=== PATIENT | female | born 1940 | race Caucasian/White ===

== ENCOUNTER 2018-03-23 15:39 | Inpatient (IN) | payer OTHER ==
[~2018-03-23] VITALS: Ht 162.6 cm; Wt 84.0 kg
[~2018-03-23 15:39] MED LIST: ASPI-621 PO; LEVO137T2 PO; LISI40TA PO; METF850T10 PO; METO25TA35 PO; NITR100C PO; SERT25TA PO
[2018-03-23] MEDS ORDERED: SODIUM CHLORIDE 0.9% 1,000ML IVBOLUS ONE ×2 (16:30→19:00)
[2018-03-23] MEDS ORDERED: SODIUM CHLORIDE FLUSH 10ML SYR IVF ONE (16:30)
[2018-03-23 16:31] LABS: MEAN CORPUSCULAR HEMOGLOBIN 30.6 pg (27.0-34.8); MEAN CORPUSCULAR VOLUME 89.8 fL (80-100); MEAN PLATELET VOLUME 8.6 fL (7.4-10.4); PLATELET COUNT 133 x10^3/uL (130-400); RED BLOOD COUNT 3.49 x10^6/uL (3.82-5.3)
[2018-03-23 16:40] LABS: INTERNATIONAL NORMALIZED RATIO 1.12 (0.93-1.1); PROTHROMBIN TIME 11.5 Seconds (9.6-11.5)
[2018-03-23 16:41] LABS: ALANINE AMINOTRANSFERASE 15 U/L (12-78); ANION GAP 13 mmol/L (5-15); CHLORIDE 103 mmol/L (98-107); CREATININE 1.73 mg/dL (0.55-1.02)
[2018-03-23 16:46] LABS: ALKALINE PHOSPHATASE 56 U/L (45-117); BILIRUBIN,TOTAL 1.4 mg/dL (0.2-1.0); FREE T4 (FREE THYROXINE) 1.23 ng/dL (0.76-1.46); TOTAL PROTEIN 7.5 g/dL (6.4-8.2)
[2018-03-23 16:52] LABS: MD YES
[2018-03-23 17:01] LABS: BAND#(MANUAL) 9.55 x10^3/uL; BANDS%(MANUAL) 25 % (0-7); LYMPH#(MANUAL) 0.38 x10^3/uL (1-3.4); LYMPHS% (MANUAL) 1 % (22-44); METAMYELOCYTES# (MANUAL) 0.76 x10^3/uL (0-0); METAMYELOCYTES% (MANUAL) 2 % (0-1); MONOS#(MANUAL) 1.91 x10^3/uL (0.3-2.7); MONOS% (MANUAL) 5 % (2-9); SEGS% (MANUAL) 67 % (42-75)
[2018-03-23 17:02] LABS: <RBC MORPHOLOGY> NORMAL
[2018-03-23 17:03] LABS: <PLATELET ESTIMATE> ADEQUATE; <PLT MORPHOLOGY> NORMAL PLT MORPH; PMNS WITH VACUOLES 1+
[2018-03-23 17:25] LABS: MICROSCOPIC AUTO
[2018-03-23 17:26] LABS: CULTURE INDICATED? YES
[2018-03-23] MEDS ORDERED: CEFTRIAXONE PMX 1GM/50ML 50 ML IVPB ONE ×2 (17:30→18:00)
[2018-03-23] MEDS ORDERED: CEFTRIAXONE PMX 1GM/50ML 50 ML ONE (17:57)
[2018-03-23] MEDS ORDERED: VANCOMYCIN PER PHARMACY MC PRN (18:00)
[2018-03-23] MEDS ORDERED: SODIUM CHLORIDE FLUSH 10ML SYR IVF PRN (19:00)
[2018-03-23] MEDS ORDERED: VANCOMYCIN 1,300 MG in SODIUM CHLORIDE 0.9% 250 ML IV ONE (19:00)
[2018-03-23] MEDS ORDERED: LACTATED RINGERS 1,000 ML IV SCH (19:30)
[2018-03-23] MEDS ORDERED: ONDANSETRON 2MG/ML, 2ML IVPush PRN (19:30)
[2018-03-23] MEDS ORDERED: HEPARIN 5,000 UNITS/ML, 1ML SQ SCH (19:30)
[2018-03-23] MEDS ORDERED: HEPARIN 5,000 UNITS/ML, 1ML ONE (19:51)
[2018-03-23] MEDS ORDERED: LEVOFLOXACIN/PMX 750MG/150ML 150 ML IV SCH (20:00)
[2018-03-23] MEDS ORDERED: LEVOFLOXACIN/PMX 750MG/150ML 150 ML ONE (20:31)
[2018-03-24] MEDS ORDERED: HEPARIN 5,000 UNITS/ML, 1ML IV PRN (00:30)
[2018-03-24] MEDS ORDERED: HEPARIN 5,000 UNITS/ML, 1ML IV ONE (00:30)
[2018-03-24] MEDS: HEPARIN 25,000 UNITS/500ML PMX 500 ML IV PRN ×2 (00:36→07:24)
[2018-03-24 00:54] VITALS: BP 122/54
[2018-03-24] MEDS ORDERED: FUROSEMIDE 20 MG/2 ML IV ONE (01:30)
[2018-03-24] MEDS: ACETAMINOPHEN 325 MG TABLET PO PRN ×2 (02:35→09:35)
[2018-03-24 04:03] VITALS: BP 125/52
[2018-03-24] MEDS ORDERED: CEFTRIAXONE 2 GM in SODIUM CHLORIDE 0.9% 50 ML IV SCH (06:00)
[2018-03-24] MEDS: LEVOTHYROXINE 137 MCG TABLET PO SCH (06:31)
[2018-03-24 07:00] LABS: MEAN CORPUSCULAR HEMOGLOBIN 30.2 pg (27.0-34.8); MEAN CORPUSCULAR HGB CONC 33.7 g/dL (32.4-35.8); MEAN CORPUSCULAR VOLUME 89.7 fL (80-100); MEAN PLATELET VOLUME 9.3 fL (7.4-10.4); PLATELET COUNT 123 x10^3/uL (130-400); RED BLOOD COUNT 3.41 x10^6/uL (3.82-5.3); RED CELL DISTRIBUTION WIDTH 15.5 % (9.6-15.2)
[2018-03-24 07:10] LABS: ALBUMIN 2.7 g/dL (3.4-5.0); ANION GAP 11 mmol/L (5-15); CALCIUM 8.1 mg/dL (8.5-10.1); CHLORIDE 104 mmol/L (98-107)
[2018-03-24 07:12] LABS: ALANINE AMINOTRANSFERASE 19 U/L (12-78); ALKALINE PHOSPHATASE 69 U/L (45-117); BILIRUBIN,TOTAL 0.9 mg/dL (0.2-1.0); CHOL/HDL RATIO 8.3; CHOLESTEROL, TOTAL 83 mg/dL (140-239); CREATININE 1.24 mg/dL (0.55-1.02); HDL CHOLESTEROL (DIRECT) 10 mg/dL (40-60); TOTAL PROTEIN 6.9 g/dL (6.4-8.2); TRIGLYCERIDES 207 mg/dL (50-200); VLDL CHOLESTEROL 41 mg/dL (0-25)
[2018-03-24 07:13] LABS: HDL CHOL % 12 % (28-40); LDL CHOLESTEROL,CALCULATED 32 mg/dL (54-169); LDL/HDL RATIO 3.2 (0.5-3.0)
[2018-03-24 07:20] LABS: MD YES
[2018-03-24 07:35] LABS: BANDS%(MANUAL) 21 % (0-7); LYMPH#(MANUAL) 0.26 x10^3/uL (1-3.4); LYMPHS% (MANUAL) 1 % (22-44); MONOS#(MANUAL) 0.51 x10^3/uL (0.3-2.7); MONOS% (MANUAL) 2 % (2-9); SEG#(MANUAL) 19.53 x10^3/uL (1.8-6.8); SEGS% (MANUAL) 76 % (42-75)
[2018-03-24 07:36] LABS: <RBC MORPHOLOGY> NORMAL; PMNS WITH VACUOLES 1+
[2018-03-24 07:37] LABS: <PLATELET ESTIMATE> ADEQUATE; <PLT MORPHOLOGY> NORMAL PLT MORPH
[2018-03-24] MEDS: ERTAPENEM 1 GM in SODIUM CHLORIDE 0.9% 50 ML IV SCH (07:49)
[2018-03-24] MEDS ORDERED: POTASSIUM CHLORIDE 20 MEQ TAB.ER.PRT PO ONE (08:00)
[2018-03-24] MEDS ORDERED: MAGNESIUM SULFATE PMX 4GM/100M 100 ML IV ONE (08:00)
[2018-03-24] MEDS ORDERED: MAGNESIUM SULFATE 4 GM in SODIUM CHLORIDE 0.9% 100 ML IV ONE (08:00)
[2018-03-24] MEDS: ASPIRIN 81 MG TABLET EC PO SCH (09:37)
[2018-03-24] MEDS: ENOXAPARIN 80 MG/0.8 ML SQ SCH (13:05)
[2018-03-24] MEDS: IBUPROFEN 200 MG TABLET PO PRN (13:15)
[2018-03-24 17:07] VITALS: BP 99/60
[2018-03-24 19:23] VITALS: BP 114/64
[2018-03-24] MEDS ORDERED: LACTATED RINGERS 1,000 ML IV SCH (19:30)
[2018-03-24] MEDS ORDERED: NITROGLYCERIN 0.4 MG/SPRAY SL PRN (20:00)
[2018-03-24 20:01] VITALS: BP 114/62
[2018-03-24] MEDS: ATORVASTATIN 40 MG TABLET PO SCH (20:36)
[2018-03-25 02:34] VITALS: BP 99/60
[2018-03-25] MEDS: ENOXAPARIN 80 MG/0.8 ML SQ SCH ×2 (02:35→13:45)
[2018-03-25 05:15] LABS: ANION GAP 4 mmol/L (5-15); CALCIUM 8.4 mg/dL (8.5-10.1); CHLORIDE 105 mmol/L (98-107); CREATININE 0.82 mg/dL (0.55-1.02)
[2018-03-25 05:16] LABS: MEAN CORPUSCULAR HEMOGLOBIN 30.7 pg (27.0-34.8); MEAN CORPUSCULAR HGB CONC 34.1 g/dL (32.4-35.8); RED BLOOD COUNT 3.16 x10^6/uL (3.82-5.3); RED CELL DISTRIBUTION WIDTH 15.7 % (9.6-15.2)
[2018-03-25 06:00] LABS: BASOPHILS % (AUTO) 0 % (0-1); EOSINOPHILS # (AUTO) 0.01 x10^3/uL (0-0.4); EOSINOPHILS % (AUTO) 0 % (1-7); LYMPHOCYTES # (AUTO) 0.94 x10^3/uL (1-3.4); LYMPHOCYTES % (AUTO) 5 % (22-44); MD SCAN; MEAN PLATELET VOLUME 9.8 fL (7.4-10.4); MONOCYTES # (AUTO) 1.32 x10^3/uL (0.2-0.8); MONOCYTES % (AUTO) 8 % (2-9); NEUTROPHILS # (AUTO) 15.04 x10^3/uL (1.8-6.8); NEUTROPHILS % (AUTO) 87 % (42-75); PLATELET COUNT 104 x10^3/uL (130-400)
[2018-03-25] MEDS: ASPIRIN 81 MG TABLET EC PO SCH (06:17)
[2018-03-25] MEDS: LEVOTHYROXINE 137 MCG TABLET PO SCH (06:17)
[2018-03-25 07:25] VITALS: BP 103/64
[2018-03-25] MEDS: ERTAPENEM 1 GM in SODIUM CHLORIDE 0.9% 50 ML IV SCH (08:28)
[2018-03-25 10:11] VITALS: BP 139/83
[2018-03-25] MEDS ORDERED: LORazepam 2 MG/ML, 1ML IVPush ONE (10:24)
[2018-03-25] MEDS ORDERED: LORazepam 2 MG/ML, 1ML ONE (10:25)
[2018-03-25] MEDS ORDERED: FUROSEMIDE 20 MG/2 ML ONE (10:56)
[2018-03-25] MEDS ORDERED: FUROSEMIDE 20 MG/2 ML IV ONE (12:00)
[2018-03-25] MEDS: ACETAMINOPHEN 650 MG SUPP PR PRN (12:04)
[2018-03-25] MEDS ORDERED: NOREPINEPHRINE 4 MG in SODIUM CHLORIDE 0.9% 246 ML IV PRN (15:30)
[2018-03-25] MEDS: ATORVASTATIN 40 MG TABLET PO SCH (20:36)
[2018-03-26] MEDS: ENOXAPARIN 80 MG/0.8 ML SQ SCH ×2 (02:04→14:08)
[2018-03-26] MEDS: LEVOTHYROXINE 137 MCG TABLET PO SCH (05:23)
[2018-03-26] MEDS: ASPIRIN 81 MG TABLET EC PO SCH (05:23)
[2018-03-26] MEDS: ERTAPENEM 1 GM in SODIUM CHLORIDE 0.9% 50 ML IV SCH (07:42)
[2018-03-26 07:56] LABS: MEAN CORPUSCULAR HEMOGLOBIN 29.5 pg (27.0-34.8); MEAN CORPUSCULAR HGB CONC 33.5 g/dL (32.4-35.8); MEAN CORPUSCULAR VOLUME 88.1 fL (80-100); MEAN PLATELET VOLUME 9.4 fL (7.4-10.4); PLATELET COUNT 124 x10^3/uL (130-400); RED BLOOD COUNT 3.35 x10^6/uL (3.82-5.3); RED CELL DISTRIBUTION WIDTH 16.5 % (9.6-15.2)
[2018-03-26 08:03] LABS: ANION GAP 7 mmol/L (5-15); CALCIUM 8.9 mg/dL (8.5-10.1); CHLORIDE 105 mmol/L (98-107); CREATININE 0.81 mg/dL (0.55-1.02)
[2018-03-26 08:21] LABS: MD YES
[2018-03-26 08:22] LABS: <RBC MORPHOLOGY> NORMAL; BAND#(MANUAL) 0.88 x10^3/uL; BANDS%(MANUAL) 6 % (0-7); LYMPH#(MANUAL) 0.29 x10^3/uL (1-3.4); LYMPHS% (MANUAL) 2 % (22-44); MONOS#(MANUAL) 0.44 x10^3/uL (0.3-2.7); MONOS% (MANUAL) 3 % (2-9); SEG#(MANUAL) 13.08 x10^3/uL (1.8-6.8); SEGS% (MANUAL) 89 % (42-75)
[2018-03-26 08:23] LABS: <PLATELET ESTIMATE> ADEQUATE; <PLT MORPHOLOGY> NORMAL PLT MORPH
[2018-03-26] MEDS ORDERED: FUROSEMIDE 20 MG/2 ML IV ONE (08:30)
[2018-03-26] MEDS: IBUPROFEN 200 MG TABLET PO PRN (10:08)
[2018-03-26] MEDS: AMIODARONE 900 MG in DEXTROSE 5% 482 ML IV PRN (14:22)
[2018-03-26] MEDS ORDERED: AMIODARONE 150 MG in DEXTROSE 5% 100 ML IV ONE (14:30)
[2018-03-26] MEDS ORDERED: FILTER 0.22 MICRON FOR AMIODARONE IV PRN (14:30)
[2018-03-26] MEDS: PHENYLEPHRINE 10 MG in SODIUM CHLORIDE 0.9% 249 ML IV PRN (18:48)
[2018-03-26] MEDS: ATORVASTATIN 40 MG TABLET PO SCH (21:02)
[2018-03-27] MEDS: ENOXAPARIN 80 MG/0.8 ML SQ SCH ×2 (02:08→14:08)
[2018-03-27] MEDS: PHENYLEPHRINE 10 MG in SODIUM CHLORIDE 0.9% 249 ML IV PRN (02:19)
[2018-03-27 04:34] LABS: ANION GAP 9 mmol/L (5-15); CALCIUM 8.9 mg/dL (8.5-10.1); CHLORIDE 106 mmol/L (98-107); CREATININE 0.83 mg/dL (0.55-1.02)
[2018-03-27] MEDS: ASPIRIN 81 MG TABLET EC PO SCH (06:11)
[2018-03-27] MEDS: LEVOTHYROXINE 137 MCG TABLET PO SCH (06:11)
[2018-03-27] MEDS: ERTAPENEM 1 GM in SODIUM CHLORIDE 0.9% 50 ML IV SCH (09:02)
[2018-03-27] MEDS ORDERED: POTASSIUM CHLORIDE 30 MEQ in SODIUM CHLORIDE 0.9% 100 ML IV ONE (10:00)
[2018-03-27] MEDS: AMIODARONE 900 MG in DEXTROSE 5% 482 ML IV PRN (13:08)
[2018-03-27] MEDS ORDERED: MAGNESIUM SULFATE PMX 2GM/50ML 50 ML IV ONE (17:00)
[2018-03-27] MEDS: ATORVASTATIN 40 MG TABLET PO SCH (21:21)
[2018-03-27] MEDS: ACETAMINOPHEN 650 MG SUPP PR PRN (21:42)
[2018-03-28] MEDS: ENOXAPARIN 80 MG/0.8 ML SQ SCH ×2 (02:38→14:02)
[2018-03-28 04:51] LABS: MEAN CORPUSCULAR HEMOGLOBIN 30.4 pg (27.0-34.8); MEAN CORPUSCULAR HGB CONC 34.4 g/dL (32.4-35.8); MEAN CORPUSCULAR VOLUME 88.2 fL (80-100); PLATELET COUNT 106 x10^3/uL (130-400); RED BLOOD COUNT 3.09 x10^6/uL (3.82-5.3); RED CELL DISTRIBUTION WIDTH 16.1 % (9.6-15.2)
[2018-03-28 04:59] LABS: ALANINE AMINOTRANSFERASE 24 U/L (12-78); ALBUMIN 2.2 g/dL (3.4-5.0); ANION GAP 7 mmol/L (5-15); CALCIUM 8.7 mg/dL (8.5-10.1); CHLORIDE 109 mmol/L (98-107)
[2018-03-28 05:02] LABS: ALKALINE PHOSPHATASE 70 U/L (45-117); BILIRUBIN,TOTAL 1.2 mg/dL (0.2-1.0); CREATININE 0.81 mg/dL (0.55-1.02); TOTAL PROTEIN 6.5 g/dL (6.4-8.2)
[2018-03-28 05:06] LABS: MD YES
[2018-03-28 05:07] LABS: BAND#(MANUAL) 0.55 x10^3/uL; BANDS%(MANUAL) 3 % (0-7); LYMPHS% (MANUAL) 6 % (22-44); MONOS#(MANUAL) 1.28 x10^3/uL (0.3-2.7); MONOS% (MANUAL) 7 % (2-9); SEG#(MANUAL) 15.37 x10^3/uL (1.8-6.8); SEGS% (MANUAL) 84 % (42-75)
[2018-03-28 05:08] LABS: <PLATELET ESTIMATE> ADEQUATE; <PLT MORPHOLOGY> NORMAL PLT MORPH; <RBC MORPHOLOGY> NORMAL
[2018-03-28] MEDS: LEVOTHYROXINE 137 MCG TABLET PO SCH (06:27)
[2018-03-28] MEDS: ASPIRIN 81 MG TABLET EC PO SCH (06:27)
[2018-03-28] MEDS ORDERED: POTASSIUM CHLORIDE 20 MEQ in SODIUM CHLORIDE 0.9% 250 ML IV ONE (09:00)
[2018-03-28] MEDS: ERTAPENEM 1 GM in SODIUM CHLORIDE 0.9% 50 ML IV SCH (11:12)
[2018-03-28] MEDS ORDERED: POTASSIUM CHLORIDE 20 MEQ TAB.ER.PRT PO ONE ×2 (12:30→17:30)
[2018-03-28] MEDS: AMIODARONE 200 MG TABLET PO SCH ×3 (13:56→21:38)
[2018-03-28] MEDS: LIDODERM 5% PATCH TD SCH (15:20)
[2018-03-28] MEDS ORDERED: BACLOFEN 10 MG TABLET PO PRN (15:30)
[2018-03-28] MEDS ORDERED: POTASSIUM CHLORIDE 20 MEQ PACKET PO PRN (17:30)
[2018-03-28 20:35] VITALS: BP 129/76
[2018-03-28] MEDS: ATORVASTATIN 40 MG TABLET PO SCH (21:38)
[2018-03-28] MEDS ORDERED: BISACODYL 10 MG SUPP PR PRN (22:00)
[2018-03-29 00:42] VITALS: BP 125/76
[2018-03-29] MEDS: ENOXAPARIN 80 MG/0.8 ML SQ SCH ×2 (02:21→14:27)
[2018-03-29 03:31] LABS: MEAN CORPUSCULAR HEMOGLOBIN 30.5 pg (27.0-34.8); MEAN CORPUSCULAR HGB CONC 34.4 g/dL (32.4-35.8); MEAN CORPUSCULAR VOLUME 88.7 fL (80-100); PLATELET COUNT 117 x10^3/uL (130-400); RED CELL DISTRIBUTION WIDTH 16.3 % (9.6-15.2)
[2018-03-29 03:33] LABS: ALBUMIN 2.5 g/dL (3.4-5.0); ANION GAP 7 mmol/L (5-15); CALCIUM 9.3 mg/dL (8.5-10.1); CHLORIDE 108 mmol/L (98-107)
[2018-03-29 03:39] LABS: ALANINE AMINOTRANSFERASE 34 U/L (12-78); ALKALINE PHOSPHATASE 75 U/L (45-117); BILIRUBIN,TOTAL 1.2 mg/dL (0.2-1.0); CREATININE 0.85 mg/dL (0.55-1.02); TOTAL PROTEIN 7.2 g/dL (6.4-8.2)
[2018-03-29 04:49] LABS: BASOPHILS # (AUTO) 0.02 x10^3/uL (0-0.1); BASOPHILS % (AUTO) 0 % (0-1); EOSINOPHILS # (AUTO) 0.03 x10^3/uL (0-0.4); EOSINOPHILS % (AUTO) 0 % (1-7); LYMPHOCYTES # (AUTO) 1.56 x10^3/uL (1-3.4); LYMPHOCYTES % (AUTO) 7 % (22-44); MD SCAN; MONOCYTES # (AUTO) 0.64 x10^3/uL (0.2-0.8); MONOCYTES % (AUTO) 3 % (2-9); NEUTROPHILS # (AUTO) 20.85 x10^3/uL (1.8-6.8); NEUTROPHILS % (AUTO) 90 % (42-75)
[2018-03-29] MEDS ORDERED: LEVOTHYROXINE 137 MCG TABLET ONE (05:31)
[2018-03-29] MEDS: LEVOTHYROXINE 137 MCG TABLET PO SCH (05:35)
[2018-03-29] MEDS: AMIODARONE 200 MG TABLET PO SCH (05:35)
[2018-03-29] MEDS: ASPIRIN 81 MG TABLET EC PO SCH (05:35)
[2018-03-29 07:18] VITALS: BP 126/73
[2018-03-29] MEDS: ERTAPENEM 1 GM in SODIUM CHLORIDE 0.9% 50 ML IV SCH (07:51)
[2018-03-29] MEDS: TAMSULOSIN 0.4 MG CAP.ER.24H PO SCH (07:51)
[2018-03-29] MEDS: IBUPROFEN 200 MG TABLET PO PRN ×2 (09:27→13:25)
[2018-03-29] MEDS ORDERED: LORazepam 2 MG/ML, 1ML IVPush PRN (13:00)
[2018-03-29 13:02] VITALS: BP 108/67
[2018-03-29] MEDS: SENNA/DOCUSATE TABLET PO PRN (14:27)
[2018-03-29] MEDS: LIDODERM 5% PATCH TD SCH (14:28)
[2018-03-29] MEDS: ATORVASTATIN 40 MG TABLET PO SCH (20:48)
[2018-03-29 20:50] VITALS: BP 153/86
[2018-03-29 22:22] LABS: HCT (SEDRATE) 27.4 % (34.6-47.8)
[2018-03-29 22:39] LABS: HIGH-SENSITIVITY CRP 9.8 mg/dL (0.02-0.30)
[2018-03-30] MEDS: ENOXAPARIN 80 MG/0.8 ML SQ SCH ×2 (02:19→13:17)
[2018-03-30 03:00] VITALS: BP 142/85
[2018-03-30] MEDS: ASPIRIN 81 MG TABLET EC PO SCH (05:48)
[2018-03-30] MEDS: LEVOTHYROXINE 137 MCG TABLET PO SCH (05:49)
[2018-03-30 06:11] LABS: MEAN CORPUSCULAR HEMOGLOBIN 30.3 pg (27.0-34.8); MEAN CORPUSCULAR HGB CONC 34.4 g/dL (32.4-35.8); MEAN PLATELET VOLUME 9.4 fL (7.4-10.4); PLATELET COUNT 118 x10^3/uL (130-400); RED BLOOD COUNT 2.91 x10^6/uL (3.82-5.3); RED CELL DISTRIBUTION WIDTH 16.9 % (9.6-15.2)
[2018-03-30 06:15] LABS: ALBUMIN 2.2 g/dL (3.4-5.0); CALCIUM 8.9 mg/dL (8.5-10.1); CHLORIDE 112 mmol/L (98-107)
[2018-03-30 06:19] LABS: ALANINE AMINOTRANSFERASE 30 U/L (12-78); ALKALINE PHOSPHATASE 70 U/L (45-117); BILIRUBIN,TOTAL 0.9 mg/dL (0.2-1.0); CREATININE 0.77 mg/dL (0.55-1.02); TOTAL PROTEIN 6.3 g/dL (6.4-8.2)
[2018-03-30 06:22] LABS: ANION GAP 9 mmol/L (5-15)
[2018-03-30] MEDS: ERTAPENEM 1 GM in SODIUM CHLORIDE 0.9% 50 ML IV SCH (07:33)
[2018-03-30] MEDS: TAMSULOSIN 0.4 MG CAP.ER.24H PO SCH (07:34)
[2018-03-30] MEDS: AMIODARONE 200 MG TABLET PO SCH (07:34)
[2018-03-30 07:36] VITALS: BP 130/76
[2018-03-30 07:36] LABS: MD YES
[2018-03-30 07:37] LABS: BAND#(MANUAL) 1.35 x10^3/uL; BANDS%(MANUAL) 5 % (0-7); EOS#(MANUAL) 0.54 x10^3/uL (0.0-0.4); EOS% (MANUAL) 2 % (1-7); LYMPH#(MANUAL) 0.81 x10^3/uL (1-3.4); LYMPHS% (MANUAL) 3 % (22-44); METAMYELOCYTES# (MANUAL) 0.27 x10^3/uL (0-0); METAMYELOCYTES% (MANUAL) 1 % (0-1); MONOS#(MANUAL) 1.08 x10^3/uL (0.3-2.7); MONOS% (MANUAL) 4 % (2-9); NRBC % (MANUAL) 1 % (0-1); SEG#(MANUAL) 22.95 x10^3/uL (1.8-6.8); SEGS% (MANUAL) 85 % (42-75)
[2018-03-30 07:41] LABS: <PLATELET ESTIMATE> DECREASED; ANISOCYTOSIS 1+
[2018-03-30 07:42] LABS: <PLT MORPHOLOGY> NORMAL PLT MORPH
[2018-03-30] MEDS: IBUPROFEN 200 MG TABLET PO PRN ×2 (09:15→14:59)
[2018-03-30] MEDS: LIDODERM 5% PATCH TD SCH (13:16)
[2018-03-30 14:00] VITALS: BP 110/70
[2018-03-30] MEDS: SENNA/DOCUSATE TABLET PO PRN (14:59)
[2018-03-30] MEDS: SERTRALINE 50MG TABLET PO SCH (15:00)
[2018-03-30 19:49] VITALS: BP 138/88
[2018-03-30] MEDS: ATORVASTATIN 40 MG TABLET PO SCH (22:01)
[2018-03-30] MEDS: FAMOTIDINE 20 MG/2 ML IVPush SCH (22:01)
[2018-03-31 01:14] VITALS: BP 138/73
[2018-03-31] MEDS: ENOXAPARIN 80 MG/0.8 ML SQ SCH ×2 (02:11→15:08)
[2018-03-31] MEDS: ASPIRIN 81 MG TABLET EC PO SCH ×2 (05:07→08:14)
[2018-03-31] MEDS: LEVOTHYROXINE 137 MCG TABLET PO SCH ×2 (05:07→08:14)
[2018-03-31] MEDS: POLYETHYLENE GLYCOL 17 GM PACKET PO PRN (05:07)
[2018-03-31 06:12] LABS: MEAN CORPUSCULAR HEMOGLOBIN 30.7 pg (27.0-34.8); MEAN CORPUSCULAR HGB CONC 34.5 g/dL (32.4-35.8); MEAN PLATELET VOLUME 9.6 fL (7.4-10.4); PLATELET COUNT 156 x10^3/uL (130-400); RED BLOOD COUNT 2.75 x10^6/uL (3.82-5.3); RED CELL DISTRIBUTION WIDTH 16.8 % (9.6-15.2)
[2018-03-31 06:15] LABS: ALBUMIN 2.2 g/dL (3.4-5.0); ANION GAP 7 mmol/L (5-15); CALCIUM 8.5 mg/dL (8.5-10.1); CHLORIDE 113 mmol/L (98-107)
[2018-03-31 06:18] LABS: ALANINE AMINOTRANSFERASE 28 U/L (12-78); ALKALINE PHOSPHATASE 73 U/L (45-117); BILIRUBIN,TOTAL 0.7 mg/dL (0.2-1.0); CREATININE 0.82 mg/dL (0.55-1.02); TOTAL PROTEIN 6.4 g/dL (6.4-8.2)
[2018-03-31 06:43] LABS: MD YES
[2018-03-31 06:52] LABS: <PLATELET ESTIMATE> DECREASED; <PLT MORPHOLOGY> NORMAL PLT MORPH; ANISOCYTOSIS 1+; LYMPHS% (MANUAL) 10 % (22-44); MONOS#(MANUAL) 1.32 x10^3/uL (0.3-2.7); MONOS% (MANUAL) 6 % (2-9); SEG#(MANUAL) 18.48 x10^3/uL (1.8-6.8); SEGS% (MANUAL) 84 % (42-75)
[2018-03-31] MEDS: AMIODARONE 200 MG TABLET PO SCH (08:13)
[2018-03-31] MEDS: FAMOTIDINE 20 MG/2 ML IVPush SCH ×2 (08:14→20:34)
[2018-03-31] MEDS: TAMSULOSIN 0.4 MG CAP.ER.24H PO SCH (08:14)
[2018-03-31] MEDS: ERTAPENEM 1 GM in SODIUM CHLORIDE 0.9% 50 ML IV SCH (08:14)
[2018-03-31 08:30] VITALS: BP 148/79
[2018-03-31] MEDS: IBUPROFEN 200 MG TABLET PO PRN ×2 (08:33→15:07)
[2018-03-31] MEDS: LACTOBACILLUS CHEW TABLET PO SCH ×3 (10:49→20:34)
[2018-03-31 14:25] VITALS: BP 136/66
[2018-03-31] MEDS: SERTRALINE 50MG TABLET PO SCH (15:07)
[2018-03-31] MEDS: LIDODERM 5% PATCH TD SCH (15:08)
[2018-03-31 19:58] VITALS: BP 132/72
[2018-03-31] MEDS ORDERED: ATORVASTATIN 40 MG TABLET PO SCH (21:00)
[2018-04-01 01:28] VITALS: BP 143/76
[2018-04-01] MEDS: ENOXAPARIN 80 MG/0.8 ML SQ SCH ×2 (02:17→14:34)
[2018-04-01 05:38] LABS: MEAN CORPUSCULAR HEMOGLOBIN 30.9 pg (27.0-34.8); MEAN CORPUSCULAR HGB CONC 34.6 g/dL (32.4-35.8); MEAN CORPUSCULAR VOLUME 89.2 fL (80-100); MEAN PLATELET VOLUME 8.8 fL (7.4-10.4); PLATELET COUNT 200 x10^3/uL (130-400); RED BLOOD COUNT 2.72 x10^6/uL (3.82-5.3); RED CELL DISTRIBUTION WIDTH 16.5 % (9.6-15.2)
[2018-04-01 05:49] LABS: CHLORIDE 111 mmol/L (98-107)
[2018-04-01 05:56] LABS: MD YES
[2018-04-01 05:57] LABS: ALANINE AMINOTRANSFERASE 27 U/L (12-78); ALBUMIN 2.2 g/dL (3.4-5.0); ALKALINE PHOSPHATASE 67 U/L (45-117); ANION GAP 8 mmol/L (5-15); BILIRUBIN,TOTAL 0.9 mg/dL (0.2-1.0); CALCIUM 8.7 mg/dL (8.5-10.1); CREATININE 0.78 mg/dL (0.55-1.02); TOTAL PROTEIN 6.5 g/dL (6.4-8.2)
[2018-04-01 06:00] LABS: <PLATELET ESTIMATE> ADEQUATE; ANISOCYTOSIS 1+; BANDS%(MANUAL) 2 % (0-7); EOS% (MANUAL) 1 % (1-7); LYMPH#(MANUAL) 2.21 x10^3/uL (1-3.4); LYMPHS% (MANUAL) 11 % (22-44); METAMYELOCYTES% (MANUAL) 1 % (0-1); MONOS% (MANUAL) 2 % (2-9); SEG#(MANUAL) 16.68 x10^3/uL (1.8-6.8); SEGS% (MANUAL) 83 % (42-75)
[2018-04-01] MEDS ORDERED: ASPIRIN 81 MG TABLET CHEW PO SCH ×2 (06:00→06:02)
[2018-04-01] MEDS: ASPIRIN 81 MG TABLET EC PO SCH (06:00)
[2018-04-01 06:01] LABS: <PLT MORPHOLOGY> NORMAL PLT MORPH
[2018-04-01 06:02] LABS: POLYCHROMASIA 1+
[2018-04-01] MEDS: LACTOBACILLUS CHEW TABLET PO SCH ×4 (06:43→21:38)
[2018-04-01] MEDS: SENNA/DOCUSATE TABLET PO PRN (06:43)
[2018-04-01] MEDS: LEVOTHYROXINE 137 MCG TABLET PO SCH (06:44)
[2018-04-01 07:34] VITALS: BP 137/74
[2018-04-01] MEDS: IBUPROFEN 200 MG TABLET PO PRN ×2 (09:13→14:34)
[2018-04-01] MEDS: POLYETHYLENE GLYCOL 17 GM PACKET PO PRN (09:13)
[2018-04-01] MEDS: ACETAMINOPHEN 325 MG TABLET PO PRN ×3 (09:13→21:38)
[2018-04-01] MEDS: FAMOTIDINE 20 MG/2 ML IVPush SCH ×2 (09:27→21:37)
[2018-04-01] MEDS: TAMSULOSIN 0.4 MG CAP.ER.24H PO SCH (09:27)
[2018-04-01] MEDS: AMIODARONE 200 MG TABLET PO SCH (09:28)
[2018-04-01] MEDS: ERTAPENEM 1 GM in SODIUM CHLORIDE 0.9% 50 ML IV SCH (09:30)
[2018-04-01] MEDS: SERTRALINE 50MG TABLET PO SCH (12:37)
[2018-04-01] MEDS: LIDODERM 5% PATCH TD SCH (14:28)
[2018-04-01 15:25] VITALS: BP 123/73
[2018-04-01] MEDS: metroNIDAZOLE 500 MG TABLET PO SCH ×2 (18:04→21:37)
[2018-04-01 19:43] VITALS: BP 118/75
[2018-04-01] MEDS: CEFDINIR 300 MG CAPSULE PO SCH (21:38)
[2018-04-01] MEDS: ATORVASTATIN 40 MG TABLET PO SCH (21:38)
[2018-04-01] MEDS ORDERED: APIXABAN 5 MG TABLET PO ONE (23:00)
[2018-04-01] MEDS ORDERED: APIXABAN 5 MG TABLET PO SCH (23:00)
[2018-04-02 01:33] VITALS: BP 144/84
[2018-04-02 05:22] LABS: MEAN CORPUSCULAR HEMOGLOBIN 30.5 pg (27.0-34.8); MEAN CORPUSCULAR HGB CONC 34.2 g/dL (32.4-35.8); MEAN CORPUSCULAR VOLUME 89.3 fL (80-100); MEAN PLATELET VOLUME 9.2 fL (7.4-10.4); PLATELET COUNT 215 x10^3/uL (130-400); RED BLOOD COUNT 2.68 x10^6/uL (3.82-5.3); RED CELL DISTRIBUTION WIDTH 16.3 % (9.6-15.2)
[2018-04-02 05:34] LABS: CHLORIDE 109 mmol/L (98-107)
[2018-04-02 05:47] LABS: ANION GAP 7 mmol/L (5-15); CALCIUM 8.7 mg/dL (8.5-10.1)
[2018-04-02] MEDS: LEVOTHYROXINE 137 MCG TABLET PO SCH (06:09)
[2018-04-02] MEDS: LACTOBACILLUS CHEW TABLET PO SCH ×4 (06:09→20:56)
[2018-04-02] MEDS: ACETAMINOPHEN 325 MG TABLET PO PRN ×3 (06:10→16:32)
[2018-04-02 07:32] LABS: MD YES
[2018-04-02 07:35] LABS: BAND#(MANUAL) 1.73 x10^3/uL; BANDS%(MANUAL) 9 % (0-7); EOS#(MANUAL) 0.19 x10^3/uL (0.0-0.4); EOS% (MANUAL) 1 % (1-7); LYMPH#(MANUAL) 1.15 x10^3/uL (1-3.4); LYMPHS% (MANUAL) 6 % (22-44); MONOS#(MANUAL) 0.58 x10^3/uL (0.3-2.7); MONOS% (MANUAL) 3 % (2-9); SEG#(MANUAL) 15.55 x10^3/uL (1.8-6.8); SEGS% (MANUAL) 81 % (42-75)
[2018-04-02 07:37] LABS: ANISOCYTOSIS 1+; POLYCHROMASIA 1+
[2018-04-02 07:38] LABS: <PLATELET ESTIMATE> ADEQUATE; <PLT MORPHOLOGY> NORMAL PLT MORPH
[2018-04-02 08:06] VITALS: BP 135/79
[2018-04-02] MEDS: CEFDINIR 300 MG CAPSULE PO SCH ×2 (08:50→21:01)
[2018-04-02] MEDS: FAMOTIDINE 20 MG/2 ML IVPush SCH ×2 (08:50→20:53)
[2018-04-02] MEDS: AMIODARONE 200 MG TABLET PO SCH (08:51)
[2018-04-02] MEDS: metroNIDAZOLE 500 MG TABLET PO SCH ×3 (08:51→20:55)
[2018-04-02] MEDS: TAMSULOSIN 0.4 MG CAP.ER.24H PO SCH (08:51)
[2018-04-02] MEDS ORDERED: APIXABAN 5 MG TABLET PO ONE (10:00)
[2018-04-02] MEDS: SERTRALINE 50MG TABLET PO SCH (12:11)
[2018-04-02 14:05] VITALS: BP 118/66
[2018-04-02] MEDS: IBUPROFEN 200 MG TABLET PO PRN (16:32)
[2018-04-02 20:00] VITALS: BP 145/66
[2018-04-02] MEDS: APIXABAN 5 MG TABLET PO SCH (20:54)
[2018-04-02] MEDS: ATORVASTATIN 40 MG TABLET PO SCH (20:56)
[2018-04-02] MEDS: LIDODERM 5% PATCH TD SCH (21:02)
[2018-04-02 23:08] VITALS: BP 145/66
[2018-04-03 01:30] VITALS: BP 145/85
[2018-04-03 05:32] LABS: MEAN CORPUSCULAR HEMOGLOBIN 30.4 pg (27.0-34.8); MEAN CORPUSCULAR HGB CONC 33.9 g/dL (32.4-35.8); MEAN CORPUSCULAR VOLUME 89.7 fL (80-100); PLATELET COUNT 256 x10^3/uL (130-400); RED BLOOD COUNT 2.89 x10^6/uL (3.82-5.3); RED CELL DISTRIBUTION WIDTH 16.8 % (9.6-15.2)
[2018-04-03] MEDS: LACTOBACILLUS CHEW TABLET PO SCH ×4 (05:34→20:47)
[2018-04-03] MEDS: LEVOTHYROXINE 137 MCG TABLET PO SCH (05:34)
[2018-04-03 05:45] LABS: CHLORIDE 111 mmol/L (98-107)
[2018-04-03 05:52] LABS: ANION GAP 4 mmol/L (5-15); CALCIUM 8.9 mg/dL (8.5-10.1); CREATININE 0.97 mg/dL (0.55-1.02)
[2018-04-03 06:05] LABS: MD YES
[2018-04-03 06:07] LABS: <PLATELET ESTIMATE> ADEQUATE; <PLT MORPHOLOGY> NORMAL PLT MORPH; ANISOCYTOSIS 1+; LYMPH#(MANUAL) 0.72 x10^3/uL (1-3.4); LYMPHS% (MANUAL) 4 % (22-44); MONOS#(MANUAL) 0.36 x10^3/uL (0.3-2.7); MONOS% (MANUAL) 2 % (2-9); POLYCHROMASIA 1+; SEG#(MANUAL) 16.83 x10^3/uL (1.8-6.8); SEGS% (MANUAL) 94 % (42-75)
[2018-04-03] MEDS: ACETAMINOPHEN 325 MG TABLET PO PRN ×3 (06:38→20:47)
[2018-04-03 07:50] VITALS: BP 156/65
[2018-04-03] MEDS: FAMOTIDINE 20 MG/2 ML IVPush SCH (09:00)
[2018-04-03] MEDS: metroNIDAZOLE 500 MG TABLET PO SCH (09:33)
[2018-04-03] MEDS: TAMSULOSIN 0.4 MG CAP.ER.24H PO SCH (09:33)
[2018-04-03] MEDS: AMIODARONE 200 MG TABLET PO SCH (09:34)
[2018-04-03] MEDS: APIXABAN 5 MG TABLET PO SCH ×2 (09:34→20:47)
[2018-04-03] MEDS: CEFDINIR 300 MG CAPSULE PO SCH ×2 (09:36→20:46)
[2018-04-03] MEDS: IBUPROFEN 200 MG TABLET PO PRN (09:45)
[2018-04-03] MEDS: SERTRALINE 50MG TABLET PO SCH (13:04)
[2018-04-03 14:30] VITALS: BP 116/62
[2018-04-03] MEDS: ATORVASTATIN 40 MG TABLET PO SCH (20:47)
[2018-04-03 20:55] VITALS: BP 149/55
[2018-04-04 01:20] VITALS: BP 146/76
[2018-04-04 04:58] LABS: BASOPHILS # (AUTO) 0.01 x10^3/uL (0-0.1); BASOPHILS % (AUTO) 0 % (0-1); EOSINOPHILS % (AUTO) 1 % (1-7); LYMPHOCYTES # (AUTO) 0.91 x10^3/uL (1-3.4); LYMPHOCYTES % (AUTO) 5 % (22-44); MD NO; MEAN CORPUSCULAR HEMOGLOBIN 30.9 pg (27.0-34.8); MEAN CORPUSCULAR HGB CONC 33.9 g/dL (32.4-35.8); MEAN CORPUSCULAR VOLUME 91.1 fL (80-100); MEAN PLATELET VOLUME 8.9 fL (7.4-10.4); MONOCYTES % (AUTO) 5 % (2-9); NEUTROPHILS # (AUTO) 15.02 x10^3/uL (1.8-6.8); NEUTROPHILS % (AUTO) 89 % (42-75); PLATELET COUNT 307 x10^3/uL (130-400); RED BLOOD COUNT 2.71 x10^6/uL (3.82-5.3); RED CELL DISTRIBUTION WIDTH 16.8 % (9.6-15.2)
[2018-04-04] MEDS: LEVOTHYROXINE 137 MCG TABLET PO SCH (05:08)
[2018-04-04] MEDS: LACTOBACILLUS CHEW TABLET PO SCH ×4 (05:08→22:47)
[2018-04-04 05:09] LABS: ANION GAP 8 mmol/L (5-15); CALCIUM 9.1 mg/dL (8.5-10.1); CHLORIDE 110 mmol/L (98-107); CREATININE 0.85 mg/dL (0.55-1.02)
[2018-04-04 07:21] VITALS: BP 134/68
[2018-04-04] MEDS: AMIODARONE 200 MG TABLET PO SCH (08:34)
[2018-04-04] MEDS: TAMSULOSIN 0.4 MG CAP.ER.24H PO SCH (08:34)
[2018-04-04] MEDS: APIXABAN 5 MG TABLET PO SCH ×2 (08:34→22:47)
[2018-04-04] MEDS: CEFDINIR 300 MG CAPSULE PO SCH ×2 (08:34→22:47)
[2018-04-04] MEDS: FERROUS SULFATE 325 MG TABLET PO SCH ×3 (09:00→16:46)
[2018-04-04] MEDS ORDERED: ACID1TAB7 PO (10:14)
[2018-04-04] MEDS ORDERED: ACET325T14 PO (10:14)
[2018-04-04] MEDS ORDERED: ATOR40TA78 PO (10:14)
[2018-04-04] MEDS ORDERED: APIX5TAB PO (10:14)
[2018-04-04] MEDS ORDERED: POLY17PO5 PO (10:14)
[2018-04-04] MEDS ORDERED: SERT50TA5 PO (10:14)
[2018-04-04] MEDS ORDERED: FERR-51 PO (10:14)
[2018-04-04] MEDS ORDERED: METO25TA35 PO (10:14)
[2018-04-04] MEDS ORDERED: AMIO200T42 PO (10:14)
[2018-04-04] MEDS ORDERED: IBUP-1484 PO (10:14)
[2018-04-04] MEDS ORDERED: CEFD300C37 PO (10:14)
[2018-04-04] MEDS ORDERED: TAMS-11 PO (10:14)
[2018-04-04 10:47] LABS: HEMOGLOBIN A1C 5.8 % (4.2-6.3)
[2018-04-04] MEDS: SERTRALINE 50MG TABLET PO SCH (11:05)
[2018-04-04 13:07] VITALS: BP 126/74
[2018-04-04 19:24] VITALS: BP 104/64
[2018-04-04] MEDS: ATORVASTATIN 40 MG TABLET PO SCH (22:47)
[2018-04-04] MEDS: IBUPROFEN 200 MG TABLET PO PRN (22:47)
[2018-04-05 01:16] VITALS: BP 125/72
[2018-04-05 05:35] LABS: BASOPHILS # (AUTO) 0.01 x10^3/uL (0-0.1); BASOPHILS % (AUTO) 0 % (0-1); EOSINOPHILS # (AUTO) 0.34 x10^3/uL (0-0.4); EOSINOPHILS % (AUTO) 3 % (1-7); LYMPHOCYTES # (AUTO) 1.03 x10^3/uL (1-3.4); LYMPHOCYTES % (AUTO) 8 % (22-44); MD NO; MEAN CORPUSCULAR HEMOGLOBIN 30.9 pg (27.0-34.8); MEAN CORPUSCULAR HGB CONC 34.3 g/dL (32.4-35.8); MEAN CORPUSCULAR VOLUME 90.1 fL (80-100); MEAN PLATELET VOLUME 8.7 fL (7.4-10.4); MONOCYTES # (AUTO) 0.77 x10^3/uL (0.2-0.8); MONOCYTES % (AUTO) 6 % (2-9); NEUTROPHILS # (AUTO) 11.61 x10^3/uL (1.8-6.8); NEUTROPHILS % (AUTO) 84 % (42-75); PLATELET COUNT 305 x10^3/uL (130-400); RED CELL DISTRIBUTION WIDTH 17.3 % (9.6-15.2)
[2018-04-05] MEDS: LACTOBACILLUS CHEW TABLET PO SCH ×2 (05:44→13:06)
[2018-04-05] MEDS: LEVOTHYROXINE 137 MCG TABLET PO SCH (05:45)
[2018-04-05 05:48] LABS: ALBUMIN 2.3 g/dL (3.4-5.0); ANION GAP 5 mmol/L (5-15); CALCIUM 9.2 mg/dL (8.5-10.1); CHLORIDE 109 mmol/L (98-107)
[2018-04-05 05:59] LABS: ALANINE AMINOTRANSFERASE 30 U/L (12-78); ALKALINE PHOSPHATASE 59 U/L (45-117); BILIRUBIN,TOTAL 0.6 mg/dL (0.2-1.0); CREATININE 0.91 mg/dL (0.55-1.02); TOTAL PROTEIN 6.6 g/dL (6.4-8.2)
[2018-04-05 07:04] VITALS: BP 123/70
[2018-04-05] MEDS: APIXABAN 5 MG TABLET PO SCH (10:18)
[2018-04-05] MEDS: TAMSULOSIN 0.4 MG CAP.ER.24H PO SCH (10:18)
[2018-04-05] MEDS: CEFDINIR 300 MG CAPSULE PO SCH (10:18)
[2018-04-05] MEDS: AMIODARONE 200 MG TABLET PO SCH (10:19)
[2018-04-05] MEDS: FERROUS SULFATE 325 MG TABLET PO SCH ×2 (10:19→13:06)
[2018-04-05 12:45] VITALS: BP 112/67
[2018-04-05] MEDS: SERTRALINE 50MG TABLET PO SCH (13:06)
== END 2018-04-05 15:29 | DRG 871 ==
LOC: ED 18:59 → EDIP 19:00 → CCU 21:06 → 5SO 03-24 16:56 → CCU 03-25 10:39 → 5SO 03-28 16:59 → 4EST 04-04 08:45
PROVIDERS: ADMIT Hospitalist; ATTEND Hospitalist
PROC: 0T9B70Z Drainage of Bladder with Drainage Device, Via Natural or Artificial Opening (ICD-10-PCS; principal; 2018-03-23)
PROC: 06HM33Z Insertion of Infusion Device into Right Femoral Vein, Percutaneous Approach (ICD-10-PCS; 2018-03-25)
PROC: B54BZZA Ultrasonography of Right Lower Extremity Veins, Guidance (ICD-10-PCS; 2018-03-25)
PROC: 05HY33Z Insertion of Infusion Device into Upper Vein, Percutaneous Approach (ICD-10-PCS; 2018-03-25)
PROC: B544ZZA Ultrasonography of Left Jugular Veins, Guidance (ICD-10-PCS; 2018-03-25)
DX: A41.51 Sepsis due to Escherichia coli [E. coli] (principal); G93.41 Metabolic encephalopathy; N17.0 Acute kidney failure with tubular necrosis; I21.4 Non-ST elevation (NSTEMI) myocardial infarction; J69.0 Pneumonitis due to inhalation of food and vomit; J96.01 Acute respiratory failure with hypoxia; R65.21 Severe sepsis with septic shock; I63.40 Cerebral infarction due to embolism of unspecified cerebral artery; J98.11 Atelectasis; N39.0 Urinary tract infection, site not specified; D50.9 Iron deficiency anemia, unspecified; D63.8 Anemia in other chronic diseases classified elsewhere; E03.9 Hypothyroidism, unspecified; E11.9 Type 2 diabetes mellitus without complications; E87.6 Hypokalemia; G89.29 Other chronic pain; I11.0 Hypertensive heart disease with heart failure; I27.20 Pulmonary hypertension, unspecified; I37.1 Nonrheumatic pulmonary valve insufficiency; I48.0 Paroxysmal atrial fibrillation; I50.9 Heart failure, unspecified; M48.061 Spinal stenosis, lumbar region without neurogenic claudication; Z87.891 Personal history of nicotine dependence; I25.2 Old myocardial infarction; Z88.0 Allergy status to penicillin; Z79.82 Long term (current) use of aspirin; Z83.3 Family history of diabetes mellitus
CPT/HCPCS: 36415; 36569; 36600; 70450; 70551; 71045; 72131; 72141; 72146; 72148; 72190; 73523; 76770; 76937; 77001; 80048; 80053; 80061; 81001; 82140; 82306; 82607; 82728; 82803; 82962; 83036; 83540; 83550; 83605; 83690; 83735; 84100; 84132; 84145; 84439; 84443; 84484; 85025; 85520; 85610; 85651; 85730; 86141; 87040; 87077; 87081; 87086; 87186; 93005; 93306; 93880; 99291; G0378; J0696; J1335; J1644; J1650; J1956; J3370; J3480; C1751; J0282; J1940; J2060; J2370; J3475; J7030; J7050; J7060; J7120; S0028

== ENCOUNTER 2018-04-16 21:54 | Inpatient (IN) | payer OTHER ==
[~2018-04-16] VITALS: Ht 167.6 cm; Wt 70.0 kg
[~2018-04-16 21:54] MED LIST changes: +ACET325T14 PO; +ACID1TAB7 PO; +AMIO200T42 PO; +APIX5TAB PO; +ATOR40TA78 PO; +CEFD300C37 PO; +FERR-51 PO; +IBUP-1484 PO; +POLY17PO5 PO; +SERT50TA5 PO; +TAMS-11 PO
[2018-04-16] MEDS ORDERED: SODIUM CHLORIDE 0.9% 1,000ML IVBOLUS ONE (22:00)
[2018-04-16] MEDS ORDERED: SODIUM CHLORIDE FLUSH 10ML SYR IVF ONE (22:00)
[2018-04-16] MEDS ORDERED: LIDOCAINE-MPF 1%, 5ML ONE (22:23)
[2018-04-16] MEDS ORDERED: VANCOMYCIN PER PHARMACY MC PRN (22:30)
[2018-04-16] MEDS ORDERED: VANCOMYCIN 1,400 MG in SODIUM CHLORIDE 0.9% 250 ML IV ONE (22:30)
[2018-04-16] MEDS ORDERED: CEFTRIAXONE PMX 1GM/50ML 50 ML IV ONE (22:30)
[2018-04-16] MEDS ORDERED: NOREPINEPHRINE 4 MG in SODIUM CHLORIDE 0.9% 246 ML IV PRN (22:30)
[2018-04-16 22:38] LABS: INTERNATIONAL NORMALIZED RATIO 1.31 (0.93-1.1); PROTHROMBIN TIME 13.4 Seconds (9.6-11.5)
[2018-04-16 22:40] LABS: ALANINE AMINOTRANSFERASE 26 U/L (12-78); ALBUMIN 2.1 g/dL (3.4-5.0); ANION GAP 19 mmol/L (5-15); CALCIUM 8.6 mg/dL (8.5-10.1); CHLORIDE 105 mmol/L (98-107)
[2018-04-16 22:41] LABS: MD YES; MEAN CORPUSCULAR HGB CONC 33.8 g/dL (32.4-35.8); MEAN CORPUSCULAR VOLUME 91.5 fL (80-100); MEAN PLATELET VOLUME 9.1 fL (7.4-10.4); PLATELET COUNT 77 x10^3/uL (130-400); RED BLOOD COUNT 2.41 x10^6/uL (3.82-5.3); RED CELL DISTRIBUTION WIDTH 16.8 % (9.6-15.2)
[2018-04-16 22:44] LABS: ALKALINE PHOSPHATASE 76 U/L (45-117); BILIRUBIN,TOTAL 0.6 mg/dL (0.2-1.0); CREATININE 2.78 mg/dL (0.55-1.02); TOTAL PROTEIN 6.1 g/dL (6.4-8.2)
[2018-04-16 22:46] LABS: METAMYELOCYTES# (MANUAL) 1.24 x10^3/uL (0-0); METAMYELOCYTES% (MANUAL) 3 % (0-1); MONOS#(MANUAL) 1.65 x10^3/uL (0.3-2.7); MONOS% (MANUAL) 4 % (2-9); SEG#(MANUAL) 23.48 x10^3/uL (1.8-6.8); SEGS% (MANUAL) 57 % (42-75)
[2018-04-16 22:47] LABS: <PLATELET ESTIMATE> DECREASED; <PLT MORPHOLOGY> NORMAL PLT MORPH; ANISOCYTOSIS 1+
[2018-04-16 22:49] LABS: BAND#(MANUAL) 13.18 x10^3/uL; BANDS%(MANUAL) 32 % (0-7); LYMPH#(MANUAL) 1.65 x10^3/uL (1-3.4); LYMPHS% (MANUAL) 4 % (22-44)
[2018-04-16 22:51] LABS: PMNS WITH VACUOLES 1+
[2018-04-16] MEDS ORDERED: CEFOTETAN PMX 1GM/50ML 50 ML IV ONE (23:00)
[2018-04-17 00:02] VITALS: BP 88/30
[2018-04-17 00:15] VITALS: BP 88/30
[2018-04-17] MEDS ORDERED: SODIUM CHLORIDE 0.9% 1,000 ML IV SCH (00:27)
[2018-04-17] MEDS ORDERED: PROMETHAZINE 25 MG/ML, 1ML IM PRN (00:30)
[2018-04-17] MEDS ORDERED: ONDANSETRON 2MG/ML, 2ML IVPush PRN (00:30)
[2018-04-17] MEDS ORDERED: VANCOMYCIN PER PHARMACY MC PRN (00:30)
[2018-04-17] MEDS ORDERED: LEVOFLOXACIN/PMX 750MG/150ML 150 ML IV SCH (00:30)
[2018-04-17] MEDS ORDERED: PHARMACY MAY ADJ FOR RENAL FX MC PRN (00:30)
[2018-04-17] MEDS ORDERED: morphine SULFATE 10 MG/ML, 1ML IVPush PRN (00:30)
[2018-04-17] MEDS ORDERED: AZTREONAM 2 GM in DEXTROSE 5% 100 ML IV SCH (00:30)
[2018-04-17 00:41] VITALS: BP 85/47
[2018-04-17] MEDS ORDERED: ALBUMIN HUMAN 25% 50 ML IV SCH (01:00)
[2018-04-17 01:13] VITALS: BP 99/52
[2018-04-17] MEDS ORDERED: CEFOTETAN PMX 1GM/50ML 50 ML ONE (01:19)
[2018-04-17] MEDS ORDERED: MORPHINE SULFATE 4 MG/ML, 1ML ONE (01:28)
[2018-04-17 01:39] LABS: PROTIME 13.4 Seconds (9.6-11.5)
[2018-04-17 01:54] LABS: D-DIMER (DIC) 4.08 ug/mlFEU (0.00-0.52)
[2018-04-17] MEDS ORDERED: LORazepam 2 MG/ML, 1ML IVPush PRN (02:30)
[2018-04-17] MEDS ORDERED: ATROPINE OPHTH SOLN 1%, 2ML BC PRN (02:30)
[2018-04-17] MEDS ORDERED: PHARMACOKINETIC CONSULTATION MC ONE (04:00)
[2018-04-17] MEDS ORDERED: PHARMACOKINETIC MONITORING MC PRN (04:00)
[2018-04-17] MEDS: FENTANYL PF 100 MCG/2ML IVPush PRN ×18 (04:09→23:18)
[2018-04-17] MEDS ORDERED: INSULIN LISPRO 100 UNITS/ML, PEN SQ-INSULIN SCH (07:00)
[2018-04-18] MEDS: FENTANYL PF 100 MCG/2ML IVPush PRN ×9 (00:18→08:42)
== END 2018-04-19 10:00 | disposition expired | DRG 871 ==
LOC: ED 22:25 → EDIP 23:00 → 4NOR 04-17 03:38 → 3NW 04-18 10:18
PROVIDERS: ADMIT Hospitalist; ATTEND Hospitalist
PROC: 02HV33Z Insertion of Infusion Device into Superior Vena Cava, Percutaneous Approach (ICD-10-PCS; principal; 2018-04-16)
PROC: B548ZZA Ultrasonography of Superior Vena Cava, Guidance (ICD-10-PCS; 2018-04-16)
PROC: 30233N1 Transfusion of Nonautologous Red Blood Cells into Peripheral Vein, Percutaneous Approach (ICD-10-PCS; 2018-04-17)
DX: A41.9 Sepsis, unspecified organism (principal); D65 Disseminated intravascular coagulation [defibrination syndrome]; R65.21 Severe sepsis with septic shock; J15.9 Unspecified bacterial pneumonia; I21.4 Non-ST elevation (NSTEMI) myocardial infarction; T83.518A Infection and inflammatory reaction due to other urinary catheter, initial encounter; N30.00 Acute cystitis without hematuria; E87.2 Acidosis; N17.9 Acute kidney failure, unspecified; I10 Essential (primary) hypertension; Z51.5 Encounter for palliative care; Y84.6 Urinary catheterization as the cause of abnormal reaction of the patient, or of later complication, without mention of misadventure at the time of the procedure; Z86.73 Personal history of transient ischemic attack (TIA), and cerebral infarction without residual deficits; D64.9 Anemia, unspecified; E11.9 Type 2 diabetes mellitus without complications; E86.0 Dehydration; I48.91 Unspecified atrial fibrillation; Z87.891 Personal history of nicotine dependence; Z88.6 Allergy status to analgesic agent; Z88.0 Allergy status to penicillin; I25.2 Old myocardial infarction; Y92.89 Other specified places as the place of occurrence of the external cause
CPT/HCPCS: 36415; 70450; 71045; 80053; 83605; 83880; 84145; 84484; 85025; 85049; 85379; 85384; 85610; 85730; 86850; 86900; 86923; 87040; 93005; 96361; 96365; 96367; 96375; 99291; G0378; J2270; J3010; J3370; J7030; J7050; P9016; S0074